=== PATIENT | female | born 1955 | race Caucasian/White ===

== ENCOUNTER → 2017-12-03 | Outpatient (CLI) | payer MEDICAID | LOC: BRMIMAGING 11:10 | PROVIDERS: ATTEND Nurse Practitioner Adult Health | DX: K76.9 Liver disease, unspecified (principal) | CPT/HCPCS: 76700-PO ==

== ENCOUNTER → 2017-12-09 | Outpatient (CLI) | payer MEDICAID ==
[~2017-12-09] MED LIST: IOPAMIDOL (ISOVUE-300) 100 ML BTL ONE
== END ==
LOC: CIMAGING 10:23
PROVIDERS: ATTEND Nurse Practitioner Adult Health
DX: K63.9 Disease of intestine, unspecified (principal); K76.9 Liver disease, unspecified
CPT/HCPCS: 74177-PO; Q9967

== ENCOUNTER 2017-12-12 12:07 | Day surgery (SDC) | payer MEDICAID ==
[2017-12-12] MEDS ORDERED: MIDAZOLAM 2 MG/2 ML VIAL ONE (12:13)
[2017-12-12] MEDS ORDERED: fentaNYL 100 MCG/2 ML INJ ONE (12:13)
[2017-12-12] MEDS ORDERED: NALOXONE HCL 0.4 MG/ML INJ ONE (12:39)
[2017-12-12] MEDS ORDERED: FLUMAZENIL 0.5 MG/5 ML MDV IVP ONE (12:39)
--- NOTE | 2017-12-12 12:45 | PDGENHP ---
History & Physical Chief Complaint: anemia, abnormal CT History of Present Illness: anemia, abnoraml LFT's, abnormal CT Pertinent Past, Social, Family History: reviewed, DM Relevant Physical Exam: nad Cardiorespiratory Assessment: RRR. ctab
--- NOTE | 2017-12-12 13:11 | GIREPORT ---
[facility] - Endoscopy Department Patient Name: Cathy Bo Procedure Date: 12/12/2017 12:36 PM Patient Type: Outpatient Attending MD/ ER Physician: Zach Waldron MD Procedure: Colonoscopy Indications: Abnormal CT of the GI tract Providers: Zach Waldron MD Medicines: Midazolam 3 mg IV, Fentanyl 75 micrograms IV Complications: No immediate complications. Description of Procedure: After obtaining informed consent, the scope was passed under direct vis ion. Throughout the procedure, the patient's blood pressure, pulse, and oxyg en saturations were monitored continuously. The Colonoscope with irrigatio n channel was introduced through the anus and advanced to the sigmoid col on. The colonoscopy was performed without difficulty. The patient tolerated the procedure well. The quality of the bowel preparation was adequate to identify polyps 6 mm and larger in size. The rectum was photographed. Moderate Sedation: Moderate (conscious) sedation was administered by the endoscopy nurse hazel gibson supervised by the endoscopist. The following parameters were monitored: oxygen saturation, heart rate, blood pressure, and response to care. To jimbo physician intraservice time was 15 minutes. Findings: An infiltrative partially obstructing large mass was found in the dista l sigmoid colon. The mass was circumferential. Biopsies were taken with a cold forceps for histology. An area in the distal sigmoid colon just distal to the mass was tattooe d with an injection of 4 mL of Spot (carbon black). Estimated Blood Loss: Estimated blood loss: none. 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 Biopsied. Unable to advance colonoscope beyond the mass. Changed to endoscope but still unable to advance beyond the mass. - An area in the distal sigmoid colon just distal to the mass was tatto oed on opposing david of the colon. Recommendation: - Patient has a contact number available for emergencies. The signs and symptoms of potential delayed complications were discussed with the pat ient. Return to normal activities tomorrow. Written discharge instructions we re provided to the patient. - Low residue diet. - Await pathology results. - Refer to an oncologist at the next available appointment. - Refer to a surgeon at appointment to be scheduled. - Thank you for allowing me to participate in the care of this patient. Attending Participation: I personally performed the entire procedure. I personally performed the entire procedure without the assistance of a fellow, resident or rn surgical. Zach Waldron MD Zach Waldron MD 12/12/2017 1:11:07 PM This report has been signed electronicallyZach Waldron MD Number of Addenda: 0 Note Initiated On: 12/12/2017 12:36 PM [email or web address]
[2017-12-12 13:16] VITALS: BP 125/65; PULSE 95
[2017-12-12 14:08] VITALS: RESP 16; TEMP 97.3; O2SAT 100
== END 2017-12-12 14:21 | disposition home or self-care (01) ==
LOC: FSGY 12:07
PROVIDERS: ATTEND Internal Medicine
PROC: 0DBN8ZX Excision of Sigmoid Colon, Via Natural or Artificial Opening Endoscopic, Diagnostic (ICD-10-PCS; principal; 2017-12-12 12:45)
DX: C18.7 Malignant neoplasm of sigmoid colon (principal); D50.9 Iron deficiency anemia, unspecified; Z80.0 Family history of malignant neoplasm of digestive organs; E11.9 Type 2 diabetes mellitus without complications; E03.9 Hypothyroidism, unspecified; M54.2 Cervicalgia; M25.519 Pain in unspecified shoulder
CPT/HCPCS: J2250; J2310; J3010